=== PATIENT | male | born 2000 | race Caucasian/White ===

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

== ENCOUNTER 2019-01-09 23:54 | Inpatient (IN) | payer OTHER ==
[~2019-01-09] VITALS: Ht 180.3 cm; Wt 76.0 kg
[~2019-01-09 23:54] MED LIST: METH4TAB PO
[2019-01-10] VITALS (12 sets, daily range): BP systolic 110–132; BP diastolic 54–73
[2019-01-10 00:33] LABS: BASOPHILS % (AUTO) 0 % (0-10); EOSINOPHILS % (AUTO) 0 % (0-10); HEMATOCRIT 43 % (40-54); HEMOGLOBIN 15.9 G/DL (13.3-17.7); LYMPHOCYTES # (AUTO) 0.7 X 10^3 (1.0-4.0); LYMPHOCYTES % (AUTO) 5 % (12-44); MEAN CORPUSCULAR HEMOGLOBIN 30 PG (25-34); MEAN CORPUSCULAR HGB CONC 37 G/DL (32-36); MEAN CORPUSCULAR VOLUME 81 FL (80-99); MEAN PLATELET VOLUME 10.5 FL (7.4-10.4); MONOCYTES # (AUTO) 0.6 X 10^3 (0.0-1.0); MONOCYTES % (AUTO) 4 % (0-12); NEUTROPHILS % (AUTO) 92 % (42-75); PLATELET COUNT 243 10^3/uL (130-400); RED CELL DISTRIBUTION WIDTH 12.2 % (10.0-14.5); WHITE BLOOD COUNT 16.4 10^3/uL (4.3-11.0)
[2019-01-10 00:35] LABS: BILIRUBIN,URINE NEGATIVE (NEGATIVE); CLARITY,URINE CLEAR; COLOR,URINE YELLOW; GLUCOSE, URINE (UA) NEGATIVE (NEGATIVE); KETONES,URINE NEGATIVE (NEGATIVE); LEUKOCYTE ESTERASE ,URINE NEGATIVE (NEGATIVE); NITRITE,URINE NEGATIVE (NEGATIVE); PH,URINE 7.5 (5-9); PROTEIN,URINE NEGATIVE (NEGATIVE)
[2019-01-10 00:53] LABS: ALANINE AMINOTRANSFERASE 22 U/L (0-55); ALKALINE PHOSPHATASE 62 U/L (40-136); BILIRUBIN,TOTAL 1.6 MG/DL (0.1-1.0); BUN/CREATININE RATIO 8; CALCIUM 9.9 MG/DL (8.5-10.1); CARBON DIOXIDE 18 MMOL/L (21-32); CHLORIDE 105 MMOL/L (98-107); CREATININE SERUM 0.97 MG/DL (0.60-1.30); GFR ESTIMATED > 60; GLUCOSE 137 MG/DL (70-105); POTASSIUM 3.8 MMOL/L (3.6-5.0); SODIUM 139 MMOL/L (135-145); TOTAL PROTEIN 7.4 GM/DL (6.4-8.2)
[2019-01-10 01:00] LABS: BAND NEUTROPHILS 12 %; LYMPHOCYTES % (MANUAL) 3 %; MONOCYTES % (MANUAL) 2 %; NEUTROPHILS % (MANUAL) 83 %; RBC MORPH NORMAL
[2019-01-10 01:01] LABS: BACTERIA,URINE NEGATIVE /HPF; SQUAMOUS EPITHELIAL CELL,UR 0-2 /HPF
[2019-01-10] MEDS ORDERED: NS 100 ML (IVPB) BAG IV ONE (01:30)
[2019-01-10] MEDS ORDERED: IOHEXOL 350 MG/ML 100 ML (OMNIPAQUE 350) VIAL IV ONE (01:30)
[2019-01-10] MEDS ORDERED: PIPERACILLIN/TAZOBACTAM (BULK) 4.5 GM in NS (IVPB) 100 ML IV ONE (02:15)
--- NOTE | 2019-01-10 02:15 | ED Abdominal Pain ---
General Chief Complaint: Abdominal/GI Problems Stated Complaint: LOWER ABD PAIN Nursing Triage Note: Pt ambulates to RM 5 with c/o RLQ abd pain that started today, pt states pain became more severe around 1430. Pt reports taking gas-x and a stool softener prior to arrival, thinking it might be a bowel issue. Pt rates pain 8/10 at this time. Source of Information: Patient Exam Limitations: No Limitations History of Present Illness Date Seen by Provider: Jan 10, 2019 Time Seen by Provider: 00:02 Initial Comments This 18-year-old young man presents to emergency room with complaints of abdominal pain that started early yesterday morning around 05:30 was mild at first but then worsened early afternoon around 14:30. It escalated and would not allow him to sleep tonight. Pain is migrated toward the right lower quadr ant and to a lesser extent the left lower quadrant. He took Gas-X which was not helpful. He'll large bowel movement this evening which was also not helpful. He reports his pain was a 10 at its worst. It is now 5/10. His last oral consumption was at around 22:00. Paula Lamb is his primary care provider. He denies nausea, vomiting, diarrhea, hematuria, constipation Allergies and Home Medications Allergies Coded Allergies: No Known Drug Allergies (Unverified , 12/19/16) Home Medications Methylprednisolone 4 Mg Tab.ds.pk, 4 MG PO UD Prescribed by: ANTOINETTE NOGUERA on 10/24/18 [id number] Patient Home Medication List Home Medication List Reviewed: Yes Review of Systems Review of Systems Constitutional: no symptoms reported EENTM: No Symptoms Reported Respiratory: No Symptoms Reported Cardiovascular: No Symptoms Reported Gastrointestinal: See HPI Genitourinary: No Symptoms Reported Musculoskeletal: no symptoms reported Skin: no symptoms reported Psychiatric/Neurological: No Symptoms Reported Endocrine: No Symptoms Reported Past Bosawri-Zfnigj-Azrkkb Hx Past Med/Social Hx: Reviewed Nursing Past Med/Soc Hx Patient Social History 2nd Hand Smoke Exposure: Yes Recent Foreign Travel: No Contact w/Someone Who Travel: No Recent Infectious Disease Expo: No Recent Hopitalizations: No Physical Abuse: No Sexual Abuse: No Mistreated: No Fear: No Immunizations Up To Date PED Vaccines UTD: Yes Seasonal Allergies Seasonal Allergies: No Past Medical History Surgeries: Yes (CYST REMOVED FROM WRIST) Orthopedic Respiratory: No Cardiac: No Neurological: No Genitourinary: No Gastrointestinal: No Musculoskeletal: Yes (CYST ON WRIST REMOVED) Endocrine: No HEENT: No Cancer: No Psychosocial: No Integumentary: No Blood Disorders: No Adverse Reaction/Blood Tranf: No Family Medical History No Pertinent Family Hx Physical Exam Vital Signs Vital Signs - First Documented 01/10/19 00:13 Temp 37.0 Pulse 106 Resp 20 B/P (MAP) 136/86 Pulse Ox 99 O2 Delivery Room Air Capillary Refill : Height/Weight/BMI Height: 5'11.00" Weight: 165lbs. oz. 74.480681zg; 54.00 BMI Method:Stated General Appearance: WD/WN, no apparent distress, thin HEENT: PERRL/EOMI, normal ENT inspection, pharynx normal Neck: normal inspection Respiratory: lungs clear, normal breath sounds, no respiratory distress, no accessory muscle use Cardiovascular: regular rate, rhythm, no edema, no murmur Gastrointestinal: normal bowel sounds, soft, tenderness (right lower quadrant), other (mildly positive Rovsing, iliopsoas sign, psoas sign. 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, no motor/sensory deficits, alert, normal mood/affect, oriented x 3 Skin: normal color, warm/dry Progress/Results/Core Measures Results/Orders Lab Results Laboratory Tests Test 01/10/19 00:16 01/10/19 00:22 Range/Units Urine Color YELLOW Urine Clarity CLEAR Urine pH 7.5 5-9 Urine Specific [place] <=1.005 1.016-1.022 Urine Protein NEGATIVE NEGATIVE Urine Glucose (UA) NEGATIVE NEGATIVE Urine Ketones NEGATIVE NEGATIVE Urine Nitrite NEGATIVE NEGATIVE Urine Bilirubin NEGATIVE NEGATIVE Urine Urobilinogen 0.2 < = 1.0 MG/DL Urine Leukocyte Esterase NEGATIVE NEGATIVE Urine RBC (Auto) NEGATIVE NEGATIVE Urine RBC NONE /HPF Urine WBC NONE /HPF Urine Squamous Epithelial Cells 0-2 /HPF Urine Crystals NONE /LPF Urine Bacteria NEGATIVE /HPF Urine Casts NONE /LPF Urine Mucus NEGATIVE /LPF Urine Culture Indicated NO White Blood Count 16.4 H 4.3-11.0 10^3/uL Red Blood Count 5.36 4.35-5.85 10^6/uL Hemoglobin 15.9 13.3-17.7 G/DL Hematocrit 43 40-54 % Mean Corpuscular Volume 81 80-99 FL Mean Corpuscular Hemoglobin 30 25-34 PG Mean Corpuscular Hemoglobin Concent 37 H 32-36 G/DL Red Cell Distribution Width 12.2 10.0-14.5 % Platelet Count 243 130-400 10^3/uL Mean Platelet Volume 10.5 H 7.4-10.4 FL Neutrophils (%) (Auto) 92 H 42-75 % Lymphocytes (%) (Auto) 5 L 12-44 % Monocytes (%) (Auto) 4 0-12 % Eosinophils (%) (Auto) 0 0-10 % Basophils (%) (Auto) 0 0-10 % Neutrophils # (Auto) 15.0 H 1.8-7.8 X 10^3 Lymphocytes # (Auto) 0.7 L 1.0-4.0 X 10^3 Monocytes # (Auto) 0.6 0.0-1.0 X 10^3 Eosinophils # (Auto) 0.0 0.0-0.3 10^3/uL Basophils # (Auto) 0.0 0.0-0.1 10^3/uL Neutrophils % (Manual) 83 % Lymphocytes % (Manual) 3 % Monocytes % (Manual) 2 % Band Neutrophils 12 % Blood Morphology Comment NORMAL Sodium Level 139 135-145 MMOL/L Potassium Level 3.8 3.6-5.0 MMOL/L Chloride Level 105 98-107 MMOL/L Carbon Dioxide Level 18 L 21-32 MMOL/L Anion Gap 16 H 5-14 MMOL/L Blood Urea Nitrogen 8 7-18 MG/DL Creatinine 0.97 0.60-1.30 MG/DL Estimat Glomerular Filtration Rate > 60 BUN/Creatinine Ratio 8 Glucose Level 137 H 70-105 MG/DL Calcium Level 9.9 8.5-10.1 MG/DL Corrected Calcium 8.5-10.1 MG/DL Total Bilirubin 1.6 H 0.1-1.0 MG/DL Aspartate Amino Transf (AST/SGOT) 21 5-34 U/L Alanine Aminotransferase (ALT/SGPT) 22 0-55 U/L Alkaline Phosphatase 62 40-136 U/L C-Reactive Protein High Sensitivity 1.04 H 0.00-0.50 MG/DL Total Protein 7.4 6.4-8.2 GM/DL Albumin 5.0 H 3.2-4.5 GM/DL My Orders Orders - BRUEGGEMANN,RENE T MD Ua Culture If Indicated (01/10/19 00:02) Cbc With Automated Diff (01/10/19 00:24) Comprehensive Metabolic Panel (01/10/19 00:24) Ed Iv/Invasive Line Start (01/10/19 00:24) Manual Differential (01/10/19 00:22) Hs C Reactive Protein (01/10/19 00:22) Ct Abd/Pelv W (Appendicitis) (01/10/19 01:07) Iohexol Injection (Omnipaque 350 Mg/Ml 1 (01/10/19 01:30) Ns (Ivpb) (Sodium Chloride 0.9% Ivpb Bag (01/10/19 01:30) Piperacillin/Tazobactam (Bulk) (Zosyn In (01/10/19 02:15) Medications Given in ED Current Medications Medications Dose Ordered Sig/Felipe Route Start Time Stop Time Status Last Admin Dose Admin Iohexol 100 ml ONCE ONCE IV 01/10/19 01:30 01/10/19 03:45 DC 01/10/19 01:26 100 ML Sodium Chloride 80 ml ONCE ONCE IV 01/10/19 01:30 01/10/19 03:45 DC 01/10/19 01:26 80 ML Vital Signs/I&O 01/10/19 00:13 Temp 37.0 Pulse 106 Resp 20 B/P (MAP) 136/86 Pulse Ox 99 O2 Delivery Room Air Progress Progress Note : Progress Note Patient was found to have significant leukocytosis. Risks and benefits of CT scan were discussed with the patient. He elected to proceed with CT scan which revealed acute uncomplicated appendicitis. Case was discussed with Dr. Brown who requested initiation of Zosyn and surgery anticipated around 09:00. Departure Communication (Admissions) Time/Spoke to Admitting Phy: 02:05 Dr. Brown Impression Primary Impression: Acute appendicitis Qualified Codes: K35.30 - Acute appendicitis with localized peritonitis, without perforation or gangrene Disposition: ADMITTED INPATIENT Condition: Stable Admissions Decision to Admit Reason: Admit from ER (General) Decision to Admit/Date: Jan 10, 2019 Time/Decision to Admit Time: 02:00 Departure-Patient Inst. Decision time for Depature: 02:00 Referrals: ZAIN LAMB (PCP/Family) Primary Care Physician RENE FREIRE MD Jan 10, 2019 02:14 POS
[2019-01-10] MEDS ORDERED: PIPERACILLIN/TAZO 4.5 GM VIAL (ZOSYN) IV ONE (02:19)
--- NOTE | 2019-01-10 03:25 | NUR ---
RAND MARTINEZ admitted to room 413-1, with an admitting diagnosis of acute appendisitis, on 01/10/19 from ED via wheelchair, accompanied by staff.RAND MARTINEZ introduced to surroundings, call light, bed controls, phone, TV, temperature control, lights, meal times, smoking policy, visitor policy, side rail policy, bathrooms and showers. Patient Rights given to patient in the handbook. RAND MARTINEZ verbalizes understanding that [facility] is not responsible for the loss or damage to any personal effects or valuables that are kept in the patients posession during their hospitalization.
[2019-01-10] MEDS ORDERED: NS IV 1000 ML 1,000 ML ONE (03:34)
[2019-01-10] MEDS ORDERED: ONDANSETRON 4 MG/2 ML (SDV) Z0FRAN IV PRN (04:00)
[2019-01-10] MEDS ORDERED: fentaNYL INJECTION 100 MCG/2 ML AMP IV PRN (04:00)
[2019-01-10] MEDS ORDERED: PIPERACILLIN/TAZO 4.5 GM/NS 100 ML IV SCH ×4 (04:00→06:00)
[2019-01-10] MEDS ORDERED: NS IV 1000 ML 1,000 ML IV SCH (04:00)
--- NOTE | 2019-01-10 06:28 | Diagnostic Imaging Report ---
PROCEDURE: CT abdomen and pelvis with contrast, rule out appendicitis. TECHNIQUE: Multiple contiguous axial images were obtained through the abdomen and pelvis after the administration of intravenous contrast. INDICATION: Right lower quadrant abdominal pain. FINDINGS: The lung bases are clear. The liver and gallbladder are unremarkable. No biliary ductal dilatation is seen. The pancreas and spleen are unremarkable. No adrenal mass is identified. Kidneys are unremarkable. Aorta is non-aneurysmal. Small and large bowel loops are normal caliber. There is no obstruction. The appendix is dilated and thick walled. There is periappendiceal inflammation present and features are consistent with acute appendicitis. No abscess formation or bowel obstruction is seen. There is trace free fluid in the pelvis. Bladder is unremarkable. IMPRESSION: Findings consistent with acute appendicitis. No abscess formation or bowel obstruction is identified. Dictated by: Dictated on workstation # [id number]
[2019-01-10] MEDS ORDERED: FLU QUADRIvalent (5+ YOA) 2019-2020 (AFLURIA) 0.5 ML IM ONE ×2 (07:00→11:47)
--- NOTE | 2019-01-10 08:08 | History & Physical-Surgical ---
FRANKIE ONTIVEROS,MED STUDENT 01/10/19 0808: History of Present Illness History of Present Illness Reason for visit/HPI Karly is a 18yo white male presenting with lower abdominal pain that began yesterday morning. He described the pain initially as a discomfort that was a 2/10, diffuse and constant and steadily progressive. By the time he got off work at 2:30 yesterday afternoon the pain was a 10/10 and sharp. He says the pain initially was diffuse, but has migrated to the RLQ. It is non-radiating. He tried a heating pad which helped, and Gas-X which did not help. Sitting still for too long worsened the pain. Had a normal bowel movement yesterday. He denies nausea, vomiting, TATE's, chest pain, SOB. He denies ever experiencing pain like this before. Date of Admission Jan 10, 2019 at 02:12 Date Seen by a Provider: Jan 10, 2019 Time Seen by a Provider: 07:30 I consulted on this patient on 01/10/19 08:01 Attending Physician Al Ontiveros DO Admitting Physician Litzy Torrez Consult Allergies and Home Medications Allergies Coded Allergies: No Known Drug Allergies (Unverified , 12/19/16) Home Medications Methylprednisolone 4 Mg Tab.ds.pk, 4 MG PO UD Prescribed by: ANTOINETTE NOGUERA on 10/24/185 Past Liixpei-Mljcjc-Gdkwjl Hx Patient Social History 2nd Hand Smoke Exposure: Yes Recent Foreign Travel: No Contact w/Someone Who Travel: No Recent Infectious Disease Expo: No Recent Hopitalizations: No Immunizations Up To Date PED Vaccines UTD: Yes Seasonal Allergies Seasonal Allergies: No Surgeries History of Surgeries: Yes (CYST REMOVED FROM WRIST) Surgeries: Orthopedic Respiratory History of Respiratory Disorde: No Cardiovascular History of Cardiac Disorders: No Neurological History of Neurological Disord: No Genitourinary History of Genitourinary Disor: No Gastrointestinal History of Gastrointestinal Di: No Musculoskeletal History of Musculoskeletal Dis: Yes (CYST ON WRIST REMOVED) Endocrine History of Endocrine Disorders: No HEENT History of HEENT Disorders: No Cancer History of Cancer: No Psychosocial History of Psychiatric Problem: No Integumentary History of Skin or Integumenta: No Blood Transfusions History of Blood Disorders: No Adverse Reaction to a Blood Tr: No Family Medical History Significant Family History: No Pertinent Family Hx Review of Systems Constitutional: see HPI; No dizziness Respiratory: No dyspnea on exertion, No hemoptysis, No short of breath Cardiovascular: No chest pain, No palpitations Gastrointestinal: abdominal pain (RLQ); No diarrhea, No hematemesis, No nausea, No vomiting Genitourinary: No dysuria, No frequency, No hematuria, No hesitancy Psychiatric/Neurological: Denies Headache, Denies Tingling Physical Exam Vital Signs Vital Signs - First Documented 01/10/19 00:13 Temp 37.0 Pulse 106 Resp 20 B/P (MAP) 136/86 Pulse Ox 99 O2 Delivery Room Air Capillary Refill : Height, Weight, BMI Height: 5'11.00" Weight: 165lbs. oz. [id number]; 23.37 BMI Method:Stated General Appearance: No Apparent Distress, WD/WN Eyes: Bilateral Eye PERRL, Bilateral Eye EOMI HEENT: PERRL/EOMI, Moist Mucous Membranes; No Scleral Icterus (L), No Scleral Icterus (R) Neck: Normal Inspection, Non Tender, Supple; No Lymphadenopathy (L), No Lymphadenopathy (R) Respiratory: Lungs Clear, Normal Breath Sounds, No Accessory Muscle Use, No Respiratory Distress Cardiovascular: Regular Rate, Rhythm, No Edema, No Murmur, Normal Peripheral Pulses Gastrointestinal: Normal Bowel Sounds, No Pulsatile Mass, Soft; No Distended; Tenderness Extremity: Non Tender, No Calf Tenderness, No Pedal Edema Neurologic/Psychiatric: Alert, Oriented x3, Normal Mood/Affect Skin: Normal Color, Warm/Dry Lymphatic: No Adenopathy Data Review Labs Laboratory Tests 01/10/19 00:16: Urine Color YELLOW, Urine Clarity CLEAR, Urine pH 7.5, Urine Specific [place] <=1.005, Urine Protein NEGATIVE, Urine Glucose (UA) NEGATIVE, Urine Ketones NEGATIVE, Urine Nitrite NEGATIVE, Urine Bilirubin NEGATIVE, Urine Urobilinogen 0.2, Urine Leukocyte Esterase NEGATIVE, Urine RBC (Auto) NEGATIVE, Urine RBC NONE, Urine WBC NONE, Urine Squamous Epithelial Cells 0-2, Urine Crystals NONE, Urine Bacteria NEGATIVE, Urine Casts NONE, Urine Mucus NEGATIVE, Urine Culture Indicated NO 01/10/19 00:22: White Blood Count 16.4H, Red Blood Count 5.36, Hemoglobin 15.9, Hematocrit 43, Mean Corpuscular Volume 81, Mean Corpuscular Hemoglobin 30, Mean Corpuscular Hemoglobin Concent 37H, Red Cell Distribution Width 12.2, Platelet Count 243, Mean Platelet Volume 10.5H, Neutrophils (%) (Auto) 92H, Lymphocytes (%) (Auto) 5L, Monocytes (%) (Auto) 4, Eosinophils (%) (Auto) 0, Basophils (%) (Auto) 0, N eutrophils # (Auto) 15.0H, Lymphocytes # (Auto) 0.7L, Monocytes # (Auto) 0.6, Eosinophils # (Auto) 0.0, Basophils # (Auto) 0.0, Neutrophils % (Manual) 83, Lymphocytes % (Manual) 3, Monocytes % (Manual) 2, Band Neutrophils 12, Blood Morphology Comment NORMAL, Sodium Level 139, Potassium Level 3.8, Chloride Level 105, Carbon Dioxide Level 18L, Anion Gap 16H, Blood Urea Nitrogen 8, Creatinine 0.97, Estimat Glomerular Filtration Rate > 60, BUN/Creatinine Ratio 8, Glucose Level 137H, Calcium Level 9.9, Corrected Calcium , Total Bilirubin 1.6H, Aspartate Amino Transf (AST/SGOT) 21, Alanine Aminotransferase (ALT/SGPT) 22, Alkaline Phosphatase 62, C-Reactive Protein High Sensitivity 1.04H, Total Protein 7.4, Albumin 5.0H Assessment/Plan Assessment/Plan Admission Diagonsis Acute Appendicitis Admission Status: Other Assessment/Plan RLQ abdominal pain Acute Appendicitis Leukocytosis Start Zosyn Has been NPO since midnight IV hydration Plan to take to OR today Clinical Quality Measures DVT/VTE Risk/Contraindication: RFS Level Per Nursing on Admit: 1=Low/No VTE PPX AL ONTIVEROS DO 01/10/19 7163: History of Present Illness History of Present Illness Reason for visit/HPI CC: rlq abd pain. 18 year old male lower abd pain starting yesterday am. Progressively worsening throughout the day. Movement makes worse causing sharp pain. Heating pad helped minimally. Worsened to 10/10 and went to er overnight. Had ct scan consistent with appendicitis. Denies n/v, fever sweats chills shortness fo breath or chest pain. Allergies and Home Medications Allergies Coded Allergies: No Known Drug Allergies (Unverified , 12/19/16) Home Medications Methylprednisolone 4 Mg Tab.ds.pk, 4 MG PO UD Prescribed by: ANTOINETTE NOGUERA on 10/24/182148 Patient Home Medication List Home Medication List Reviewed: Yes Past Ekrdetj-Qtcagc-Xzdjth Hx Patient Social History Alcohol Use: Denies Use Recreational Drug Use: No Smoking Status: Never a Smoker Surgeries History of Surgeries: Yes (excsion of cyst) Surgeries: Orthopedic Respiratory History of Respiratory Disorde: No Cardiovascular History of Cardiac Disorders: No Neurological History of Neurological Disord: No Reproductive System Hx Reproductive Disorders: No Sexually Transmitted Disease: No HIV/AIDS: No Genitourinary History of Genitourinary Disor: No Gastrointestinal History of Gastrointestinal Di: No Musculoskeletal History of Musculoskeletal Dis: No Endocrine History of Endocrine Disorders: No HEENT History of HEENT Disorders: No Cancer History of Cancer: No Psychosocial History of Psychiatric Problem: No Integumentary History of Skin or Integumenta: No Blood Transfusions History of Blood Disorders: No Family Medical History Significant Family History: No Pertinent Family Hx Review of Systems Constitutional: no symptoms reported EENTM: no symptoms reported Respiratory: no symptoms reported Cardiovascular: no symptoms reported Gastrointestinal: see HPI, abdominal pain (RLQ); No nausea, No vomiting Genitourinary: no symptoms reported Musculoskeletal: no symptoms reported Skin: no symptoms reported Psychiatric/Neurological: No Symptoms Reported Physical Exam General Appearance: No Apparent Distress, WD/WN HEENT: PERRL/EOMI Neck: Normal Inspection Respiratory: Chest Non Tender, No Accessory Muscle Use, No Respiratory Distress Cardiovascular: Regular Rate, Rhythm Gastrointestinal: No Organomegaly, Soft, Tenderness (rlq) Rectal: Deferred Back: No CVA Tenderness Extremity: Normal Capillary Refill, Normal Inspection, Non Tender, No Calf Tenderness Neurologic/Psychiatric: Alert, Oriented x3, No Motor/Sensory Deficits, Normal Mood/Affect, nurse clinical II-XII Norm as Tested Skin: Normal Color, Warm/Dry Lymphatic: No Adenopathy Assessment/Plan Assessment/Plan Admission Diagonsis rlq abd pain acute appendicits Admission Status: Observation Assessment/Plan RLQ abdominal pain Acute Appendicitis Leukocytosis discussed risks and benefits of laparoscopic appendectomy all other indicated procedures he understands and wishes to proceed to oR NPO On Zosyn Supervisory-Addendum Brief Verification & Attestation Participated in pt care: history, MDM, physical Personally performed: exam, history, MDM, supervision of care Care discussed with: Medical Student Procedures: n/a Results interpretation: Verified all documentation Verification and Attestation of Medical Student E/M Service A medical student performed and documented this service in my presence. I reviewed and verified all information documented by the medical student and made modifications to such information, when appropriate. I personally performed the physical exam and medical decision making. Al Ontiveros, Jan 10, 2019,09:02 FRANKIE ONTIVEROS,MED STUDENT Jan 10, 2019 08:08 AL TRIVEDI DO Jan 10, 2019 08:59 POS
[2019-01-10] MEDS ORDERED: MIDAZOLAM 2 MG/2 ML (VERSED) VIAL ONE (08:19)
[2019-01-10] MEDS ORDERED: fentaNYL INJECTION 100 MCG/2 ML AMP ONE (08:19)
--- NOTE | 2019-01-10 08:20 | NUR ---
TO OR PER BED
[2019-01-10] MEDS ORDERED: MEPERIDINE (DEMEROL) INJ 50 MG/ML IVP ONE (08:30)
[2019-01-10] MEDS ORDERED: ONDANSETRON 4 MG/2 ML (SDV) Z0FRAN IVP PRN (08:30)
[2019-01-10] MEDS ORDERED: morphine INJ 10 MG/ML 1ML (SYR OR VIAL) IVP ONE (08:30)
[2019-01-10] MEDS ORDERED: fentaNYL INJECTION 100 MCG/2 ML AMP IVP ONE (08:30)
[2019-01-10] MEDS ORDERED: BUP/EPI 0.5% 1:200,000 (MARCAINE) 10ML VIAL IJ ONE (08:36)
[2019-01-10] MEDS: LACTATED RINGERS 1,000 ML IV PRN ×2 (09:07→09:55)
[2019-01-10] MEDS ORDERED: proPOfol 200 MG/20 ML (DIPRIVAN) VIAL IV ONE (09:12)
[2019-01-10] MEDS ORDERED: SEVOFLURANE (ULTANE) 15 ML INHAL SOLN ONE ×4 (09:12→11:02)
[2019-01-10] MEDS ORDERED: ROCURONIUM 10 MG/ML 5 ML SYRINGE IV ONE (09:12)
[2019-01-10] MEDS ORDERED: LIDOCAINE PF 2% 5 ML (XYLOCAINE) VIAL ONE (09:12)
[2019-01-10] MEDS ORDERED: DEXAMETHASONE 10 MG/ML (DECADRON) 1 ML VIAL ONE (09:51)
[2019-01-10] MEDS ORDERED: NEOSTIGMINE 3 MG/3 ML VIAL ONE (09:51)
[2019-01-10] MEDS ORDERED: ONDANSETRON 4 MG/2 ML (SDV) Z0FRAN ONE (09:51)
[2019-01-10] MEDS ORDERED: GLYCOPYRROLATE 0.2 MG/ML (ROBINUL) 2 ML VIAL ONE (09:51)
[2019-01-10] MEDS ORDERED: KETOROLAC 30 MG/ML VIAL ONE (09:56)
[2019-01-10] MEDS ORDERED: morphine INJ 10 MG/ML 1ML (SYR OR VIAL) ONE (09:58)
--- NOTE | 2019-01-10 10:00 | Progress Note-Post Operative ---
Post-Operative Progess Note Surgeon (s)/Accordion Repairer (s) Surgeon AL ONTIVEROS DO Accordion Repairer: na Pre-Operative Diagnosis rlq abd pain, acute appendicitis Post-Operative Diagnosis same Procedure & Operative Findings Date of Procedure 01/10/19 Procedure Performed/Findings laparoscopic appendectomy Anesthesia Type gen Estimated Blood Loss Estimated blood loss (mL): min Specimens/Packing Specimens Removed appendix Packing: dict # [id number] AL ONTIVEROS DO Jan 10, 2019 10:00 POS
[2019-01-10] MEDS ORDERED: ACHD5005 PO (10:07)
[2019-01-10] MEDS ORDERED: DOCU-143 PO (10:07)
--- NOTE | 2019-01-10 10:09 | Discharge Inst-Simple/Standard ---
Discharge Inst-Standard Discharge Medications New, Converted or Re-Newed RX: RX on Chart Patient Instructions/Follow Up Plan of Care/Instructions/FU: 2-3 weeks Kevin Activity as Tolerated: No Discharge Diet: Regular Diet Other Inst to Patient Follow up Appt: Make appointment for 2-3 week. Instructions: No lifting greater than 10 pounds. No strenuous activity. May shower in 24 hours, no tub bath or soaking. Use incentive spirometer at home as directed. No Smoking Skin/Wound Care: You have special glue over incisions it will fall off on its own. Symptoms to Report: Appetite Changes, Extremity Discoloration, Numbness/Tingling, Swelling Increased, Bleeding Excessive, Eyesight Changes, Pain Increased, Urine Color Change, Constipation(Persistent), Fever over 101 degree F, Pain/Pressure in c hest, Urinating Difficulty, Cough Up/Vomit Blood, Heart Beat Irreg/Pounding, Pain/Pressure in jaw, Vaginal Bleeding Increase, Cramps in feet or legs, Lightheadedness, Pain/Pressure in shoulder, Diarrhea(Persistent), Memory Changes Suddenly, Questions/Concerns, Weight gain consecutive days, Dizziness/Fainting, Nausea/Vomiting, Shortness of Breath, Weight gain over 2 pounds If questions or concerns contact your physician Or seek help at emergency department. AL ONTIVEROS DO Jan 10, 2019 10:09 POS
[2019-01-10] MEDS ORDERED: HYDROcodone/APAP 5 MG/325 MG (LORTAB) TAB PO PRN (10:15)
--- NOTE | 2019-01-10 11:05 | NUR ---
RETURNED FROM [facility] PER BED. ALERT AND COOPERATIVE. SKIN W/D. DENIES PAIN AT THIS TIME. TAKING ICE CHIPS WELL. X 3 DERMABOND SITES TO ABD. WITH SL. BRUISING NOTED. ICE PACK TO ABD. INC. AREA. ABD. SOFT AND SL. TENDER. IV TO LEFT HAND WITH N/S INFUSING AT 150CC/HR.
--- NOTE | 2019-01-10 13:45 | NUR ---
UP TO BATHROOM. VOIDED MOD. URINE WITHOUT DIFFICULTY. AMBULATED IN HALLWAY. EDGARD. WELL. MEDICATED WITH LORTAB FOR C/O OF MOD. AMT. ABD. INC. PAIN.
--- NOTE | 2019-01-10 13:59 | OPERATIVE REPORT ---
DATE OF SERVICE: 01/10/2019 PREOPERATIVE DIAGNOSES: Right lower quadrant abdominal pain, acute appendicitis. POSTOPERATIVE DIAGNOSES: Right lower quadrant abdominal pain, acute appendicitis. PROCEDURE: Laparoscopic appendectomy. SURGEON: Al Brown DO ANESTHESIA: General. ESTIMATED BLOOD LOSS: Minimal. COMPLICATIONS: None. INDICATIONS: The patient is a 18-year-old male who presented to Emergency Department with pain that began yesterday, continued to worsen. CT scan findings and physical exam consistent with acute appendicitis. He understands risks and benefits of procedure and wished to proceed with procedure. Consent was signed in the chart. DESCRIPTION OF PROCEDURE: The patient was taken to the operating suite, was prepped and draped in sterile fashion. Surgical pause was performed. Local anesthetic was infiltrated just above the umbilicus. A 15 blade scalpel was used to make a small skin incision and cautery was used to dissect down to the fascia, which was then scored, grasped, elevated and the abdomen was then entered. A 0 Vicryl was placed in a [id number]-hfroo fashion for closure at the end of the case. The was inserted and pneumoperitoneum was achieved. Under direct visualization of the laparoscope, a 5 mm trocar was placed in the suprapubic region and a 5 mm trocar was placed in the left lower quadrant. Appendix was dilated and inflamed, which was able to be grasped, elevated. A [place] was used to dissect around the base of the appendix. An Endo-JOSELUIS 2.5 stapler was then fired across the base of the appendix. A LigaSure was then used to dissect the mesoappendix from the appendix. It was placed in an Endobag and removed through 12 mm trocar site. The abdomen was irrigated with copious amounts of irrigation and suction. No other pathology noted. The abdomen was then desufflated, the trocars were removed. The 0 Vicryl was placed at the end of the case was then tied closing the 12 mm fascial defect. The skin was then closed using 4-0 Monocryl in subcuticular fashion. The abdomen was then washed and dried and Skin Affix was placed over the incisions. The patient tolerated procedure well without any complications and taken to recovery room in stable condition. Job ID: [id number] DocumentID: [id number] Dictated Date: 01/10/2019 10:00:05 Wall Cleaner Date: 01/10/2019 13:58:32 Dictated By: AL BROWN DO
--- NOTE | 2019-01-10 14:15 | NUR ---
RAND MARTINEZ demonstrates understanding of discharge instructions and accurately returns instructions upon questioning. Copy of Post-Discharge Instructions given to PT. RAND MARTINEZ is able to manage continuing needs after discharge. Patients belongings returned to PT. Patient discharged from 413-1 on 01/10/19 at 1415. RAND MARTINEZ left floor via W/C, accompanied by STAFF AND FAMILY PER AUTO.
== END 2019-01-10 14:15 | disposition home or self-care (01) | DRG 343 ==
LOC: EDUNIT# 23:54 → ER 23:55 → 4TH 01-10 02:12
PROVIDERS: ADMIT Surgery; ATTEND Surgery
PROC: 0DTJ4ZZ Resection of Appendix, Percutaneous Endoscopic Approach (ICD-10-PCS; principal; 2019-01-10 09:05)
DX: K35.80 Unspecified acute appendicitis (principal); Z23 Encounter for immunization
CPT/HCPCS: 36415; 74177; 80053; 81000; 85007; 85027; 86141; 87081; 94664

== ENCOUNTER → 2022-05-01 | Outpatient (CLI) | payer BC, OTHER ==
[~2022-05-01] MED LIST changes: +ACHD5005 PO; +DOCU-143 PO
== END ==
LOC: CARD 12:00
PROVIDERS: ATTEND Family Medicine
DX: R00.2 Palpitations (principal)
CPT/HCPCS: 93246